=== PATIENT | female | born 1995 | race Caucasian/White ===

== ENCOUNTER 2016-06-22 22:22 | Emergency (ER) | payer OTHER ==
[~2016-06-22] VITALS: Ht 162.6 cm; Wt 76.0 kg
[~2016-06-22 22:22] MED LIST: ACET325T33 PO
[2016-06-22 22:28] VITALS: Ht 162.6 cm; Wt 76.0 kg
[2016-06-22 23:19] LABS: URINE BLOOD (Dip) POC Negative (NEGATIVE)
[2016-06-22] MEDS ORDERED: IBUP-1542 PO (23:30)
[2016-06-22] MEDS ORDERED: IBUPROFEN 800 MG TAB PO ONE (23:30)
--- NOTE | 2016-06-22 23:36 | ERD ---
ER Documentation Chief Complaint Date/Time DATE: 06/22/16 TIME: 23:34 Chief Complaint pelvic pain x 5 days HPI Patient is a 21-year-old female with migraine headaches who presents with pelvic pain. Her symptoms started at 12:00. She has pain with urination. She denies fevers. She has had no treatment as of yet. Upon review of old medical records the patient has multiple visits to the ER for various complaints. She is well-known to myself and to our staff. ROS All systems reviewed and are negative except as per history of present illness. Medications Home Meds Active Scripts Ibuprofen* (Motrin*) 600 Mg Tab, 600 MG PO Q8, #30 TAB Prov:ANNEMARIE CARDONA MD 06/22/16 Acetaminophen* (Tylenol*) 325 Mg Tablet, 2 TAB PO Q6 Y for PAIN AND OR ELEVATED TEMP, #20 TAB Prov:ANNEMARIE CARDONA MD 06/16/15 Allergies Allergies: Coded Allergies: No Known Allergy (Unverified , 06/16/15) PMhx/Soc Medical and Surgical Hx: pt denies Medical Hx, pt denies Surgical Hx History of Surgery: No Anesthesia Reaction: No Hx Neurological Disorder: No Hx Respiratory Disorders: No Hx Cardiac Disorders: No Hx Psychiatric Problems: No Hx Miscellaneous Medical Probl: Yes (MIGRAINE HEADACHES) Hx Alcohol Use: No Hx Substance Use: No Hx Tobacco Use: No Smoking Status: Never smoker FmHx Family History: No diabetes Physical Exam Vitals Vital Signs Date Time Temp Pulse Resp B/P Pulse Ox O2 Delivery O2 Flow Rate FiO2 06/22/16 22:28 98.8 74 20 123/63 99 Physical Exam Const: No acute distress Head: Atraumatic Eyes: Normal Conjunctiva ENT: Normal External Ears, Nose and Mouth. Neck: Full range of motion..~ No meningismus. Resp: Clear to auscultation bilaterally Cardio: Regular rate and rhythm, no murmurs Abd: Soft, non tender, non distended. Normal bowel sounds Skin: No petechiae or rashes Back: No midline or flank tenderness Ext: No cyanosis, or edema Neur: Awake and alert Psych: Normal Mood and Affect Results 24 hrs Laboratory Tests Test 06/22/16 23:21 Bedside Urine pH (LAB) 6.0 Bedside Urine Protein (LAB) Negative Bedside Urine Glucose (UA) Negative Bedside Urine Ketones (LAB) Negative Bedside Urine Blood Negative Bedside Urine Nitrite (LAB) Negative Bedside Urine Leukocyte Esterase (L Negative Current Medications Medications (Trade) Dose Ordered Sig/Kimberly Route PRN Reason Start Time Stop Time Status Last Admin Dose Admin Ibuprofen (Motrin) 800 mg ONCE ONCE PO 06/22/16 23:30 06/22/16 23:31 DC 06/22/16 23:23 Procedures/MDM Urine dip is negative. Urine test is negative. Patient is a 21-year-old female presents with pelvic pain. Her test and urine dip were negative. I doubt cystitis. I doubt appendicitis, cholecystitis, pancreatitis, or bowel obstruction. I believe outpatient management is appropriate. The patient can return for any worsening symptoms. She should follow-up with her primary doctor within 24 hours for reevaluation. She will be given ibuprofen for pain. Departure Diagnosis: Primary Impression: Acute pain in female pelvis Condition: Fair Patient Instructions: Abdominal Pain, Unknown Cause, (Female) Referrals: MARTY KIRBY (PCP) Additional Instructions: Call your primary care doctor TOMORROW for an appointment during the next 1-2 days.See the doctor sooner or return here if your condition worsens before your appointment time. ANNEMARIE CARDONA MD June 22, 2016 23:36
== END 2016-06-23 00:42 | disposition home or self-care (01) ==
LOC: FTE 22:22
DX: R10.2 Pelvic and perineal pain (principal)
CPT/HCPCS: 81003; Z7502; Z7610; 99283

== ENCOUNTER 2017-09-21 21:01 | Emergency (ER) | END 2017-09-21 22:34 | disposition left against medical advice (07) ==